=== PATIENT | male | born 1980 | race Asian ===

== ENCOUNTER 2018-07-30 17:30 | Emergency (ER) | payer OTHER ==
[2018-07-30 17:46] VITALS: BMI 22.7
--- NOTE | 2018-07-30 17:49 | PDOC ---
Rapid Medical Evaluation Chief Complaint: Nausea/Vomiting Time Seen by Provider: 07/30/18 17:43 Medical Evaluation: Allergies Allergy/AdvReac Type Severity Reaction Status Date / Time No Known Allergies Allergy Verified 11/27/15 09:12 07/30/18 17:43 I have performed a brief in-person evaluation of this patient. The patient presents with a chief complaint of: / diarhea / LLQ pain x 3-4 weeks [address] by Dr Mantilla told to try lactose intolerance meds. . Bloods 07/16, and stools sent Saturday , diarhea intermittantly Pertinent physical exam findings: pale / abd soft with no rebound or guarding I have ordered the following: UA/ CBC,ESR,crp,cmp, lipase, t3, TSH, The patient will proceed to the ED for further evaluation. 07/30/18 17:49 07/30/18 17:49 07/30/18 17:53 07/30/18 17:54 07/30/18 17:54
[2018-07-30 18:20] LABS: BASO % 0.4 % (0-2.0); EOS % 1.4 % (0-4.5); HEMATOCRIT 43.8 % (35.4-49); HEMOGLOBIN 14.6 GM/dL (11.7-16.9); LYMPH % 27.1 % (8-40); MCH 30.3 pg (25.7-33.7); MCHC 33.4 g/dl (32.0-35.9); MEAN CELL VOLUME 90.9 fl (80-96); MEAN PLT VOLUME 7.8 fl (7.5-11.1); MONO % 8.6 % (3.8-10.2); NEUT % 62.5 % (42.8-82.8); PLATELET COUNT 248 K/MM3 (134-434); RBC 4.81 M/mm3 (4.00-5.60); RDW 13.3 % (11.9-15.9); WHITE BLOOD COUNT 6.6 K/mm3 (4.0-10.0)
--- NOTE | 2018-07-30 18:27 | PDOC ---
History of Present Illness - General Chief Complaint: Nausea/Vomiting Stated Complaint: LOWER LT ABDOMINAL PAIN Time Seen by Provider: 07/30/18 17:43 - History of Present Illness Initial Comments: The patient is a 38M w/ no reported PMH who presents for evaluation of approx 4 weeks of intermittent LLQ pain described as non-radiating, burning sensation. Occasional associated RLQ burning. Endorses associated NB diarrhea. BMs non- painful. Patient reports sensation is intermittently associated with being worse post- prandially Recent travel to [place], however symptoms precede travel. Denies fevers/chills, VERDIN, vision changes, chest pain, shortness of breath, N/V/C , or changes in sensation 07/30/18 18:26 07/30/18 19:13 Past History - Past Medical History Allergies/Adverse Reactions: Allergies Allergy/AdvReac Type Severity Reaction Status Date / Time No Known Allergies Allergy Verified 07/30/18 17:43 Home Medications: Ambulatory Orders Loperamide HCl [Imodium -] 2 mg PO Q8H 07/30/18 COPD: No - Suicide/Smoking/Psychosocial Hx Smoking History: Never smoked Hx Alcohol Use: Yes (OCCASIONAL) Drug/Substance Use Hx: No Substance Use Type: None Review of Systems - Review of Systems Able to Perform ROS?: Yes Comments:: GENERAL/CONSTITUTIONAL: No fever or chills. No weakness HEAD, EYES, EARS, NOSE AND THROAT: No change in vision. No ear pain or discharge. No sore throat CARDIOVASCULAR: No chest pain or shortness of breath RESPIRATORY: No cough, wheezing, or hemoptysis GASTROINTESTINAL: per HPI GENITOURINARY: No dysuria, frequency, or change in urination MUSCULOSKELETAL: No joint or muscle swelling or pain. No neck or back pain SKIN: No rash NEUROLOGIC: No headache, vertigo, loss of consciousness, or change in strength/ sensation ENDOCRINE: No increased thirst. No abnormal weight change HEMATOLOGIC/LYMPHATIC: No anemia, easy bleeding, or history of blood clots ALLERGIC/IMMUNOLOGIC: No hives or skin allergy 07/30/18 18:26 Is the patient limited Iranian proficient: No *Physical Exam - Vital Signs Last Vital Signs Temp Pulse Resp BP Pulse Ox 98.2 F 93 H 18 129/77 100 07/30/18 17:45 07/30/18 17:45 07/30/18 17:45 07/30/18 17:45 07/30/18 17:45 - Physical Exam Comments: GENERAL: Awake, alert, and fully oriented, in no acute distress HEAD: No signs of trauma, normocephalic, atraumatic EYES: PERRLA, EOMI, sclera anicteric, conjunctiva clear ENT: Hearing grossly normal, nares patent, oropharynx clear without exudates. Moist mucosa LUNGS: No distress, speaks full sentences, clear to auscultation bilaterally HEART: Regular rate and rhythm, normal S1 and S2, no murmurs, rubs or gallops, peripheral pulses normal and equal bilaterally ABDOMEN: Soft, nontender, non-distended, normoactive bowel sounds. No guarding, no rebound EXTREMITIES : Normal inspection, Normal range of motion, no edema. No clubbing or cyanosis NEUROLOGICAL: Cranial nerves II through XII grossly intact. Normal speech, normal gait, no focal sensorimotor deficits SKIN: Warm, Dry, normal turgor, no rashes or lesions noted 07/30/18 18:26 ED Treatment Course - LABORATORY CBC & Chemistry Diagram: 07/30/18 17:55 07/30/18 17:52 Medical Decision Making - Medical Decision Making The patient is a 38M who presents for evaluation of approx 4 weeks intermittent lower abd pain and associated NB diarrhea Labs UA pending 07/30/18 18:25 lytes wnl no pain currently seen by Dr. Heller, this past week, FOBT neg, no leukocytosis in clinic 07/30/18 19:08 CT A&P w/ contrast to evaluate for colitis v diverticulitis v chron's v other intra-abdominal pathology UA w/o evidence of UTI No leukocytosis Lytes wnl 07/30/18 19:32 CT w/ evidence of diverticulosis w/o diverticulitis Plan for D/C w/ GI f/u Discharge instructions and return precautions given Patient in agreement and verbalized understanding of plan Dispo Home 07/30/18 21:48 *DC/Admit/Observation/Transfer Diagnosis at time of Disposition: Nausea & vomiting Qualifiers: Vomiting type: unspecified Vomiting Intractability: unspecified Qualified Code( s): R11.2 - Nausea with vomiting, unspecified Diverticulosis Qualifiers: Diverticulosis site: unspecified location Diverticulosis bleeding: diverticulosis without bleeding Qualified Code(s): K57.90 - Diverticulosis of intestine, part unspecified, without perforation or abscess without bleeding - Discharge Dispostion Disposition: HOME Condition at time of disposition: Stable Decision to Admit order: No - Referrals Referrals: Temo James MD [Primary Care Provider] - Micah Heller DO [Staff Physician] - - Patient Instructions Additional Instructions: You were seen in the Emergency Room for evaluation of abdominal pain. Review the handouts provided at discharge. Follow up with gasteroenterology within the next 1-3 days. Return to the Emergency Room if you develop worsening pain, vomiting, fevers, worsening symptoms or new/concerning symptoms - Post Discharge Activity
[2018-07-30 18:33] LABS: URINE APPEARANCE CLEAR; URINE BILIRUBIN NEGATIVE (<2.0 mg/dL); URINE COLOR YELLOW; URINE GLUCOSE (UA) NEGATIVE (NEGATIVE); URINE KETONE NEGATIVE (NEGATIVE); URINE LEUK ESTERASE NEGATIVE (NEGATIVE); URINE NITRITE NEGATIVE (NEGATIVE); URINE PROTEIN NEGATIVE (NEGATIVE); URINE UROBILINOGEN NEGATIVE mg/dL (0.2-1.0)
[2018-07-30 18:43] LABS: ALK PHOS 130 U/L (45-117); ANION GAP 7 MMOL/L (8-16); BILIRUBIN,TOTAL 0.4 mg/dL (0.2-1); BLOOD UREA NITROGEN 14 mg/dL (7-18); CALCIUM 9.2 mg/dL (8.5-10.1); CHLORIDE 104 mmol/L (98-107); CO2 27 mmol/L (21-32); CREATININE 1.1 mg/dL (0.55-1.3); GLUCOSE,RANDOM 91 mg/dL (74-106); LIPASE 191 U/L (73-393); POTASSIUM 4.1 mmol/L (3.5-5.1); SGOT/AST 35 U/L (15-37); SGPT/ALT 67 U/L (13-61); SODIUM 139 mmol/L (136-145); TOT PROT 8.1 g/dl (6.4-8.2)
[2018-07-30 19:11] LABS: EPI CELLS RARE /HPF (FEW); URINE MUCUS RARE
[2018-07-30] MEDS ORDERED: SODIUM CHLORIDE 0.9% 1000 ML INFUS.BAG IV ONE (19:37)
--- NOTE | 2018-07-30 20:38 | PDOC ---
Attending Attestation - HPI HPI: 07/30/18 20:53 The patient is a 38 year old male, with a significant past medical history of, who presents to the emergency department with, 1 month of left lower quadrant burning. As per patient, his symptoms have been constant with associated approximately 6 episodes of diarrhea, nausea, and vomiting. He has followed up with GI which has done basic labs and stool occult. He denies any recent colonoscopy or endoscopy. He denies any recent fevers, chills, headache or dizziness. He denies any recent nausea, vomit, or constipation. He denies any recent chest pain or shortness of breath. He denies any recent dysuria or hematuria. Allergies: NKDA Past surgical history: None reported. Primary Care Physician: Dr. Isael James - Physicial Exam PE: 07/30/18 20:54 Constitutional: Awake, alert, oriented. No acute distress. Head: Normocephalic. Atraumatic Eyes: PERRL. EOMI. Conjunctivae are not pale. ENT: Mucous membranes are moist and intact. Posterior pharynx without exudates or erythema. Uvula midline. Neck: Supple. Full ROM. No lymphadenopathy. Cardiovascular: Regular rate. Regular rhythm. S1, S2 regular. Distal pulses are 2+ and symmetric. Pulmonary/Chest: No evidence of respiratory distress. Clear to auscultation bilaterally No wheezing, rales or rhonchi. Abdominal: Soft and non-distended. There is no tenderness. No rebound, guarding or rigidity. No organomegaly. No palpable masses. Good bowel sounds. Back: No CVA tenderness. Musculoskeletal: No edema. No cyanosis. No clubbing. Full range of motion in all extremities. No calf tenderness. Radial/pedal pulses are intact and 2+ bilaterally Skin: Skin is warm and dry. No petechiae. No purpura. Neurological: Alert and oriented to person, place, and time. Cranial nerves II -XII are grossly intact. Normal speech. Strength is grossly symmetric. No sensory deficits. Psychiatric: Good eye contact. Normal interaction, affect and behavior. <Saira Rivera - Last Filed: 07/30/18 21:50> - Resident Resident Name: Shane Maki - ED Attending Attestation I have performed the following: I have examined & evaluated the patient, The case was reviewed & discussed with the resident, I agree w/resident's findings & plan, Exceptions are as noted - Medical Decision Making 07/30/18 20:37 I, Dr. Mayi Woodard DO, attest that this document has been prepared under my direction and personally reviewed by me in its entirety. I further attest, that it accurately reflects all work, treatment, procedures and medical decision -making performed by me. 07/30/18 20:37 a/p: 38yo male with 1 month hx of diarrhea and a burning sensation to the b/l lower abd -will send labs -has seen gi -will obtain ct abd/pelvis to eval for colitis/diverticular disease -will hydrate -will monitor and reassess 07/30/18 21:54 ct shows diverticulosis without acute diverticulitis stable for d/c to home for follow up with GI as an outpt <Mayi Woodard - Last Filed: 07/30/18 21:57> Attestations - Attestations 07/30/18 20:54 Documentation prepared by Saira Rivera, acting as medical information officer for Mayi Woodard DO. <Saira Rivera - Last Filed: 07/30/18 21:50>
[2018-07-30 22:05] VITALS: BP 128/88; PULSE 91; TEMP 98.5
== END 2018-07-30 22:08 | disposition home or self-care (01) ==
LOC: JER 17:30
PROC: 3E0337Z Introduction of Electrolytic and Water Balance Substance into Peripheral Vein, Percutaneous Approach (ICD-10-PCS; principal; 2018-07-30)
DX: K57.90 Diverticulosis of intestine, part unspecified, without perforation or abscess without bleeding (principal); R11.2 Nausea with vomiting, unspecified
CPT/HCPCS: 36415; 74177-TC; 80053; 81003; 81015; 83690; 84443; 84479; 85025; 85651; 86140; 99282-25; J7030

== ENCOUNTER 2018-09-12 11:41 | Day surgery (SDC) | payer OTHER ==
[2018-09-10 12:14] VITALS: BMI 23.8
[2018-09-12 13:42] VITALS: TEMP 97.9
[2018-09-12 15:10] VITALS: BP 112/67; PULSE 82
--- NOTE | 2018-09-16 10:09 | PATH ---
Surgical Pathology Report Patient Name: JENNIE MARIE [facility] Rec. #: [id number] /Age/Gender: 1980 (Age: 38) / M Account: [id number] Location: ASU-ENDOSCOPY Taken: 09/12/2018 Received: 09/15/2018 Reported: 09/16/2018 Physicians: Abelardo Mantilla D.O. Specimen(s) Received A: BX TERMINAL ILEUM B: BX RIGHT COLON C: BX TRANSVERSE COLON D: BX DESCENDING COLON AND SIGMOID COLON E: POLYP SIGMOID Clinical History Diarrhea Postoperative diagnosis: Diverticulosis, colon polyp Final Diagnosis A. TERMINAL ILEUM, BIOPSY: SMALL BOWEL MUCOSA WITHOUT SIGNIFICANT PATHOLOGIC FINDINGS. B. COLON, RIGHT, BIOPSY: COLONIC MUCOSA WITH PROMINENT LYMPHOID AGGREGATE. C. TRANSVERSE COLON, BIOPSY: POLYPOID COLONIC MUCOSA WITH SMALL LYMPHOID AGGREGATE. D. DESCENDING AND SIGMOID COLON, BIOPSY: POLYPOID COLONIC MUCOSA WITH SMALL LYMPHOID AGGREGATE. E. SIGMOID COLON, POLYP, BIOPSY: HYPERPLASTIC POLYP. Electronically Signed Sandi Altamirano M.D. Gross Description A. Received in formalin, labeled "biopsy terminal ileum" is a sepulveda, irregular portion of soft tissue measuring 0.4 cm. in greatest dimension. The specimen is submitted in toto in one cassette. B. Received in formalin, labeled "biopsy right colon" are 4 ranging from sepulveda, irregular portions of soft tissue ranging from 0.1-0.3 cm. in greatest dimension. The specimens are submitted in toto in one cassette. C. Received in formalin, labeled "biopsy transverse colon" are 3 sepulveda, irregular portions of soft tissue averaging 0.2 cm. in greatest dimension. The specimens are submitted in toto in one cassette. D. Received in formalin, labeled "biopsy descending and sigmoid colon" are 7 sepulveda, irregular portions of soft tissue ranging from 0.1-0.3 cm. in greatest dimension. The specimens are submitted in toto in one cassette. E. Received in formalin, labeled "biopsy sigmoid polyp" are 3 sepulveda, irregular portions of soft tissue averaging 0.3 cm. in greatest dimension. The specimens are submitted in toto in one cassette. DL/09/15/2018 saudi09/15/2018
== END 2018-09-12 15:15 | disposition home or self-care (01) ==
LOC: JASU-ENDO 11:41
PROVIDERS: ATTEND Internal Medicine Gastroenterology
PROC: 0DBL8ZX Excision of Transverse Colon, Via Natural or Artificial Opening Endoscopic, Diagnostic (ICD-10-PCS; 2018-09-12)
PROC: 0DBN8ZX Excision of Sigmoid Colon, Via Natural or Artificial Opening Endoscopic, Diagnostic (ICD-10-PCS; 2018-09-12)
PROC: 0DBB8ZX Excision of Ileum, Via Natural or Artificial Opening Endoscopic, Diagnostic (ICD-10-PCS; 2018-09-12)
PROC: 0DBM8ZX Excision of Descending Colon, Via Natural or Artificial Opening Endoscopic, Diagnostic (ICD-10-PCS; 2018-09-12)
PROC: 0DBK8ZX Excision of Ascending Colon, Via Natural or Artificial Opening Endoscopic, Diagnostic (ICD-10-PCS; principal; 2018-09-12 12:30)
DX: K63.5 Polyp of colon (principal); K63.89 Other specified diseases of intestine; R19.7 Diarrhea, unspecified
CPT/HCPCS: 36415; 81256; 82728; 83540; 83550; 88305-TC